=== PATIENT | female | born 1955 | race African-American/Black ===

== ENCOUNTER 2017-09-14 07:45 | Day surgery (SDC) | payer OTHER ==
[2017-09-14] MEDS ORDERED: NA CHLORIDE 0.9% 1,000 ML ONE (08:05)
[2017-09-14] MEDS ORDERED: LIDOCAINE 1% MPF 5 ML VIAL ONE (08:31)
[2017-09-14] MEDS ORDERED: PROPOFOL 200 MG/20 ML VIAL IV ONE (08:31)
--- NOTE | 2017-09-14 09:16 | ENDO RPT ---
[address], [address] COLONOSCOPY PROCEDURE REPORT EXAM DATE: 09/14/2017 PATIENT NAME: hCeryl Perales MR #: [id number] BIRTHDATE: 1955 ATTENDING: Jean Claude Snyder DR STATUS: outpatient CAR CLEANER: Shannon Beaver RN and Dillon Ibrahim INDICATIONS: The patient is a 62 yr old Female here for a colonoscopy due to colon cancer screening PROCEDURE PERFORMED: Colonoscopy with biopsy MEDICATIONS: Per Anesthesia. ESTIMATED BLOOD LOSS: None CONSENT: The patient understands the risks and benefits of the procedure and understands that these risks include, but are not limited to: sedation, allergic reaction, infection, perforation and/or bleeding. Alternative means of evaluation and treatment include, among others: physical exam, x-rays, and/or surgical intervention. The patient elects to proceed with this endoscopic procedure. DESCRIPTION OF PROCEDURE: During intra-op preparation period all mechanical medical equipment was checked for proper function. Hand hygiene and appropriate measures for infection prevention was taken. Procedure, possible complications, alternatives including, but not limited to possibility of bleeding, perforation, tear, infection, sepsis, need for surgery, need for blood transfusion, were explained to the patient. After the risks, benefits and alternatives of the procedure were thoroughly explained, Informed consent was verified, confirmed and timeout was successfully executed by the treatment team. The patient was placed in the left lateral position. A digital rectal exam was performed and revealed internal hemorrhoids and A digital rectal exam was performed and revealed several skin tags. After appropriate level of anesthesia, the scope was passed. The [id number] ([id number]) endoscope was introduced through the anus and advanced to the cecum, which was identified by the ileocecal valve. The quality of the prep was fair. The instrument was then slowly withdrawn as the colon was fully examined. Scope withdrawal time was 10 minutes. COLON FINDINGS: The lumen was mildly dilated in the left colon. A biopsy was performed using cold forceps. Small internal hemorrhoids were found. Retroflexed views revealed no abnormalities. The scope was then completely withdrawn from the patient and the procedure terminated. ADVERSE EVENTS: There were no complications. IMPRESSIONS: 1. The lumen was dilated in the left colon; biopsy was performed using cold forceps 2. Small internal hemorrhoids RECOMMENDATIONS: 1. avoid NSAIDS for 2 weeks 2. fiber rich diet 3. await biopsy results 4. follow-up: office 2 week(s) 5. hemorrhoidal hygiene RECALL: Return in 5 year(s) for Colonoscopy, pending biopsy results. Jean Claude Snyder DR eSigned: Jean Claude Snyder DR 09/14/2017 9:15 AM cc: CPT CODES: ICD9 CODES: PATIENT NAME: Cheryl Perales MR#: [id number]
== END 2017-09-14 10:15 | disposition home or self-care (01) ==
LOC: ENDO 07:45
PROVIDERS: ATTEND Surgery
PROC: 0DBG8ZX Excision of Left Large Intestine, Via Natural or Artificial Opening Endoscopic, Diagnostic (ICD-10-PCS; principal; 2017-09-14 08:30)
DX: Z12.11 Encounter for screening for malignant neoplasm of colon (principal); K64.8 Other hemorrhoids; L91.8 Other hypertrophic disorders of the skin; E11.9 Type 2 diabetes mellitus without complications; I10 Essential (primary) hypertension; E78.5 Hyperlipidemia, unspecified; G25.81 Restless legs syndrome; E66.9 Obesity, unspecified; F41.8 Other specified anxiety disorders; H40.10X0 Unspecified open-angle glaucoma, stage unspecified; Z79.82 Long term (current) use of aspirin; Z90.49 Acquired absence of other specified parts of digestive tract; Z80.1 Family history of malignant neoplasm of trachea, bronchus and lung; Z80.3 Family history of malignant neoplasm of breast; Z83.71 Family history of colonic polyps; Z82.49 Family history of ischemic heart disease and other diseases of the circulatory system
CPT/HCPCS: 82962; 88305; J7030

== ENCOUNTER 2018-07-05 06:21 | Day surgery (SDC) | payer OTHER ==
--- NOTE | 2018-06-29 14:45 | RAD REPORT ---
EXAM DESCRIPTION: RAD - Chest Pa And Lat (2 Views) - 06/29/2018 2:41 pm CLINICAL HISTORY: preop Chest pain. COMPARISON: CHEST PA AND LAT 2 VIEW dated 10/09/2008; CHEST SINGLE VIEW dated 08/22/2003 FINDINGS: The lungs are clear. The heart is normal in size. No displaced fractures. IMPRESSION: No acute or concerning finding suspected.
[2018-06-29 14:53] LABS: Absolute Lymphocytes (CBC) 3.3 K/uL (0.7-4.9); Absolute Monocytes 0.5 K/uL (0.1-1.3); Absolute Neutrophil 4.1 K/uL (1.8-8.0); Basophils % 0.2 % (0-1.3); Eosinophils % 2.1 % (0-4.4); Hematocrit 39.9 % (36.0-45.0); Lymphocytes % 41.3 % (15.3-44.8); MPV 8.2 fL (7.6-11.3); Monocytes % 6.2 % (3.3-12.3); RBC Red Blood Cell Count 4.71 M/uL (3.86-4.86)
[2018-06-29 15:02] LABS: Protime INR 1.09
[2018-06-29 15:08] LABS: Potassium 3.6 mmol/L (3.5-5.1)
--- NOTE | 2018-06-29 21:37 | EKG ---
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
--- OUTSIDE RECORDS SUMMARY | 2018-07-05 06:24 | XMS REPORT ---
:1955 Author Organization eClinicalWorks Care Team Providers Name Role Phone Doc Jacobs Provider Role Unavailable Allergies No Known Allergies Problems Problem Type Condition Code Onset Dates Condition Status Problem Depression with anxiety F41.8 Active Problem Obesity E66.9 Active Problem Fatigue R53.83 Active Problem Adult BMI 39.0-39.9 kg/sq m Z68.39 Active Problem Hot flashes due to menopause N95.1 Active Problem Tear of left rotator cuff, M75.102 Active unspecified tear extent Problem Hyperlipidemia E78.5 Active Problem Hypertension I10 Active Problem H/O abdominal hysterectomy Z90.710 Active Problem History of colonic polyps Z86.010 Active Problem Fibromyalgia affecting multiple M79.7 Active sites Problem Diabetes mellitus type 2, E11.9 Active controlled Assessment Screening mammogram, encounter for Z12.31 Active Problem Restless legs syndrome G25.81 Active Problem Seasonal allergies J30.2 Active Medications No Known Medications Results No Known Results Summary Purpose eClinicalWorks Submission
--- OUTSIDE RECORDS SUMMARY | 2018-07-05 06:24 | XMS REPORT ---
:1955 Author Organization eClinicalWorks Care Team Providers Name Role Phone Doc Jacobs Provider Role Unavailable Allergies No Known Allergies Problems Problem Type Condition Code Onset Dates Condition Status Problem Restless legs syndrome G25.81 Active Problem Depression with anxiety F41.8 Active Problem Seasonal allergies J30.2 Active Problem Hot flashes due to menopause N95.1 Active Problem History of colonic polyps Z86.010 Active Problem H/O abdominal hysterectomy Z90.710 Active Problem Obesity E66.9 Active Problem Fatigue R53.83 Active Problem Hyperlipidemia E78.5 Active Problem Hypertension I10 Active Assessment Fibromyalgia affecting multiple M79.7 Active sites Assessment Restless legs syndrome G25.81 Active Assessment Fatigue R53.83 Active Assessment Hypertension I10 Active Assessment Diabetes mellitus type 2, E11.9 Active controlled Assessment Depression with anxiety F41.8 Active Problem Fibromyalgia affecting multiple M79.7 Active sites Assessment Hyperlipidemia E78.5 Active Problem Diabetes mellitus type 2, E11.9 Active controlled Medications Medication Code Code Instructions Start End Status Dosage System Date [facility] 79293033312 5 MG Orally Active 1 tablet Once a day Pravastatin [facility] 35269505035 80 MG Orally Active 1 tablet Sodium Once a day Vitamin D3 [facility] 96771-26825 Active not defined Requip [facility] 93798585486 0.5 MG Orally Active 1 tablet Once a day 1 to 3 hours before bedtime True Results ND 0 test strips October Inactive 1 time Meter/Lancets 18, per day Strips 2017 Hyzaar [facility] [address]-54 25-100 MG Active 1 tablet Orally Once a day Norvasc [facility] 96810469168 10 MG Orally Active 1 tablet Once a day Aspirin Adult [facility] 79010024137 81 MG Orally Active 1 tablet Low Dose Once a day Folic Acid [facility] 76953929148 1 MG Orally Active 1 tablet Once a day Effexor XR [facility] 03556181949 75 MG Orally Active 1 capsule Once a day with food Lyrica [facility] 26917437335 100 MG Orally Active 1 capsule Twice a day Metoprolol [facility] 28264711262 25 MG Orally Active 1 tablet Succinate ER Once a day Results No Known Results Summary Purpose eClinicalWorks Submission
--- OUTSIDE RECORDS SUMMARY | 2018-07-05 06:24 | XMS REPORT ---
:1955 Author Organization eClinicalWorks Care Team Providers Name Role Phone Doc Jacobs Provider Role Unavailable Allergies, Adverse Reactions, Alerts Substance Reaction Event Type N.K.D.A. Info Not Available Non Drug Allergy Problems Problem Type Condition Code Onset Dates Condition Status Problem Seasonal allergies J30.2 Active Problem Fatigue R53.83 Active Problem Depression with anxiety F41.8 Active Problem H/O abdominal hysterectomy Z90.710 Active Assessment Fibromyalgia affecting multiple M79.7 Active sites Problem Hot flashes due to menopause N95.1 Active Assessment Fatigue R53.83 Active Assessment Adult BMI 39.0-39.9 kg/sq m Z68.39 Active Problem Adult BMI 39.0-39.9 kg/sq m Z68.39 Active Problem Hypertension I10 Active Problem Obesity E66.9 Active Problem History of colonic polyps Z86.010 Active Problem Hyperlipidemia E78.5 Active Assessment Hyperlipidemia E78.5 Active Assessment Hypertension I10 Active Assessment Restless legs syndrome G25.81 Active Assessment Depression with anxiety F41.8 Active Problem Fibromyalgia affecting multiple M79.7 Active sites Assessment Pain in left wrist M25.532 Active Problem Diabetes mellitus type 2, E11.9 Active controlled Assessment Diabetes mellitus type 2, E11.9 Active controlled Problem Restless legs syndrome G25.81 Active Medications Medication Code Code Instructions Start End Status Dosage System Date Date Effexor XR [facility] 07782283198 75 MG Orally Active 1 capsule Once a day with food Vitamin D3 [facility] [address]-99 Active not defined Aspirin Adult [facility] 77323771073 81 MG Orally Active 1 tablet Low Dose Once a day Requip [facility] 19319842454 0.5 MG Orally Inactive 1 tablet Once a day 1 to 3 hours before bedtime Metoprolol [facility] 77340766483 25 MG Active TAKE 1 Succinate ER TABLET BY MOUTH ONCE DAILY Norvasc [facility] 77440005925 10 MG Active TAKE 1 TABLET BY MOUTH ONCE DAILY Lyrica [facility] 78983310172 100 MG Orally Active 1 capsule Twice a day Pravastatin [facility] 89090724432 80 MG Orally Active 1 tablet Sodium Once a day Hyzaar [facility] [address]-40 25-100 MG Active 1 tablet Orally Once a day Metoprolol [facility] 45187731606 25 MG Orally Active 1 tablet Succinate ER Once a day Tradjenta [facility] 93850779079 5 MG Orally Active 1 tablet Once a day Folic Acid [facility] 94345387234 1 MG Orally Active 1 tablet Once a day Folic Acid [facility] 85351135919 1 MG Active TAKE 1 TABLET BY MOUTH ONCE DAILY Effexor XR [facility] 93132167149 75 MG Active TAKE 1 CAPSULE BY MOUTH ONCE DAILY Pravastatin [facility] 39746636718 80 MG Orally Active 1 tablet Sodium Once a day Tradjenta [facility] 21541261039 5 MG Active TAKE 1 TABLET BY MOUTH ONCE DAILY Norvasc [facility] 49878856448 10 MG Orally Active 1 tablet Once a day Results No Known Results Summary Purpose eClinicalWorks Submission
--- OUTSIDE RECORDS SUMMARY | 2018-07-05 06:24 | XMS REPORT ---
[...] menopause N95.1 Active Assessment Fatigue R53.83 Active Problem History of colonic polyps Z86.010 Active Assessment Pain in left shoulder M25.512 Active Assessment Need for influenza vaccination Z23 Active Problem H/O abdominal hysterectomy Z90.710 Active Problem Obesity E66.9 Active Problem Fatigue R53.83 Active Problem Hyperlipidemia E78.5 Active Problem Hypertension I10 Active Assessment Depression with anxiety F41.8 Active Assessment Hyperlipidemia E78.5 Active Assessment Fibromyalgia affecting multiple M79.7 Active sites Assessment Restless legs syndrome G25.81 Active Assessment Diabetes mellitus type 2, E11.9 Active controlled Assessment Hypertension I10 Active Problem Fibromyalgia affecting multiple M79.7 Active sites Assessment Pain in right shoulder M25.511 Active Problem Diabetes mellitus type 2, E11.9 Active controlled Medications Medication Code Code Instructions Start End Status Dosage System Date Date Tradjent [facility] 93761900594 5 MG Active TAKE 1 TABLET BY MOUTH ONCE DAILY Metoprolol [facility] 50582235436 25 MG Active TAKE 1 Succinate ER TABLET BY MOUTH ONCE DAILY Aspirin Adult [facility] 46356321644 81 MG Orally Active 1 tablet Low Dose Once a day Metoprolol [facility] 81930944621 25 MG Orally Active 1 tablet Succinate ER Once a day Vitamin D3 [facility] 78626-67343 Active not defined Norvasc [facility] 47716132083 10 MG Orally Active 1 tablet Once a day Pravastatin [facility] 57024363218 80 MG Orally Active 1 tablet Sodium Once a day Folic Acid [facility] 99010360372 1 MG Orally Active 1 tablet Once a day Lyrica [facility] 64079803987 100 MG Orally Active 1 capsule Twice a day Requip [facility] 61964103208 0.5 MG Orally Active 1 tablet 1 Once a day to 3 hours before bedtime Norvasc [facility] 67138908609 10 MG Active TAKE 1 TABLET BY MOUTH ONCE DAILY Hyzaar [facility] 04372920450 100-25 MG Active TAKE 1/2 TABLET BY MOUTH TWICE DAILY Hyzaar [facility] [address]-74 25-100 MG Active 1 tablet Orally Once a day Tradjenta [facility] 25081866802 5 MG Orally Active 1 tablet Once a day Folic Acid [facility] 06626463235 1 MG Active TAKE 1 TABLET BY MOUTH ONCE DAILY Pravastatin [facility] 67568044501 80 MG Orally Active 1 tablet Sodium Once a day Effexor XR [facility] 33550812133 75 MG Orally Active 1 capsule Once a day with food Results No Known Results Immunizations Vaccine Administration Date Afluria Feb 21, 2018 Summary Purpose eClinicalWorks Submission
--- OUTSIDE RECORDS SUMMARY | 2018-07-05 06:24 | XMS REPORT ---
:1955 Author Organization eClinicalWorks Care Team Providers Name Role Phone Reynaldo Doc Provider Role Unavailable Allergies No Known Allergies [...] E78.5 Active Problem Hypertension I10 Active Assessment Diabetes mellitus type 2, E11.9 Active controlled Problem Fibromyalgia affecting multiple M79.7 Active sites Assessment Skin tag L91.8 Active Problem Diabetes mellitus type 2, E11.9 Active controlled Medications Medication Code Code Instructions Start End Status Dosage System Date Date Norvasc [facility] 02928454713 10 MG Orally Active 1 tablet Once a day Metoprolol [facility] 68907667094 25 MG Orally Active 1 tablet Succinate ER Once a day Folic Acid [facility] 21219926345 1 MG Orally Active 1 tablet Once a day Vitamin D3 [facility] 6[address]-84184 Active not defined Hyzaar [facility] [address]-63 25-100 MG Active 1 tablet Orally Once a day Effexor XR [facility] 13707408161 75 MG Orally Active 1 capsule Once a day with food Lyrica [facility] 66118924343 100 MG Orally Active 1 capsule Twice a day Pravastatin [facility] 91987412129 80 MG Orally Active 1 tablet Sodium Once a day Aspirin Adult [facility] 48452278883 81 MG Orally Active 1 tablet Low Dose Once a day Tradjenta [facility] 12462473320 5 MG Orally Active 1 tablet Once a day Requip [facility] 82479820467 0.5 MG Orally Active 1 tablet 1 Once a day to 3 hours before bedtime Results No Known Results Summary Purpose eClinicalWorks Submission
--- OUTSIDE RECORDS SUMMARY | 2018-07-05 06:24 | XMS REPORT ---
:1955 Author Organization eClinicalWorks Care Team Providers Name Role Phone Brandon Stokes Provider Role Unavailable Allergies No Known Allergies Problems Problem Type Condition Code Onset Dates Condition Status Problem Depression with anxiety F41.8 Active Problem Obesity E66.9 Active Problem Fatigue R53.83 Active Problem Fibromyalgia affecting multiple M79.7 Active sites Problem Diabetes mellitus type 2, E11.9 Active controlled Problem Restless legs syndrome G25.81 Active Problem Seasonal allergies J30.2 Active Problem Adult BMI 39.0-39.9 kg/sq m Z68.39 Active Problem Hot flashes due to menopause N95.1 Active Problem Tear of left rotator cuff, M75.102 Active unspecified tear extent Problem Hyperlipidemia E78.5 Active Problem Hypertension I10 Active Problem H/O abdominal hysterectomy Z90.710 Active Problem History of colonic polyps Z86.010 Active Medications No Known Medications Results No Known Results Summary Purpose [employer] Submission
--- OUTSIDE RECORDS SUMMARY | 2018-07-05 06:25 | XMS REPORT ---
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
--- OUTSIDE RECORDS SUMMARY | 2018-07-05 06:25 | XMS REPORT ---
:1955 Author Organization eClinicalWorks Care Team Providers Name Role Phone Brandon Stokes Provider Role Unavailable Allergies, Adverse Reactions, Alerts Substance Reaction Event Type N.K.D.A. 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 Problem History of colonic polyps Z86.010 Active Problem Hyperlipidemia E78.5 Active Problem Hot flashes due to menopause N95.1 Active Problem H/O abdominal hysterectomy Z90.710 Active Assessment Pain, joint, shoulder, left M25.512 Active Assessment Pain, joint, shoulder, right M25.511 Active Assessment Bicipital tendinitis of left M75.22 Active shoulder Assessment Bicipital tendinitis of right M75.21 Active shoulder Problem Diabetes mellitus type 2, E11.9 Active controlled Problem Restless legs syndrome G25.81 Active Problem Seasonal allergies J30.2 Active Problem Fibromyalgia affecting multiple M79.7 Active sites Problem Depression with anxiety F41.8 Active Medications Medication Code Code Instructions Start End Status Dosage System Date Date Lyrica [facility] 94574802735 100 MG Orally Active 1 capsule Twice a day Tradjenta [facility] 58882842108 5 MG Orally Active 1 tablet Once a day Vitamin B-12 [facility] 78890882351 500 MCG Orally Active 2 tablets Once a day Pravastatin [facility] 81393017630 80 MG Orally Active 1 tablet Sodium Once a day Metoprolol [facility] 03892321838 25 MG Orally Active 1 tablet Succinate ER Once a day Vitamin D3 [facility] [address]-60 Active not defined Aspirin Adult [facility] 92819034823 81 MG Orally Active 1 tablet Low Dose Once a day Ropinirole HCl [facility] 47166484744 0.5 MG Orally Active 1 tablet 1 Once a day to 3 hours before bedtime Folic Acid [facility] 04658422234 1 MG Active TAKE 1 TABLET BY MOUTH ONCE DAILY Norvasc [facility] 23850480372 10 MG Active TAKE 1 TABLET BY MOUTH ONCE DAILY Effexor XR [facility] 55398017505 75 MG Orally Active 1 capsule Once a day with food Hyzaar [facility] [address]-35 25-100 MG Active 1 tablet Orally Once a day Folic Acid [facility] 68420128034 1 MG Orally Active 1 tablet Once a day Results Name Result Date Reference Range Unit Abnormality Flag mri left shoulder w/out contrast Summary Purpose eClinicalWorks Submission
--- OUTSIDE RECORDS SUMMARY | 2018-07-05 06:25 | XMS REPORT ---
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 Problem Arthrosis of left acromioclavicular M19.012 Active [...] Start End Status Dosage System Date Date Metoprolol [facility] 60650184503 25 MG Orally Active 1 tablet Succinate ER Once a day Vitamin B-12 [facility] 09575707513 500 MCG Orally Active 2 tablets Once a day Vitamin D3 [facility] [address]-38 Active not defined Folic Acid [facility] 94296617160 1 MG Orally Active 1 tablet Once a day Folic Acid [facility] 71810318374 1 MG Active TAKE 1 TABLET BY MOUTH ONCE DAILY Ropinirole HCl [facility] 31594230265 0.5 MG Orally Active 1 tablet 1 Once a day to 3 hours before bedtime Hyzaar [facility] [address]-32 25-100 MG Active 1 tablet Orally Once a day Aspirin Adult [facility] 51299963991 81 MG Orally Active 1 tablet Low Dose Once a day Effexor XR [facility] 80729888500 75 MG Orally Active 1 capsule Once a day with food Tradjenta [facility] 13279604937 5 MG Orally Active 1 tablet Once a day Pravastatin [facility] 74460864104 80 MG Orally Active 1 tablet Sodium Once a day Lyrica [facility] 14703726751 100 MG Orally Active 1 capsule Twice a day Norvasc [facility] 08110856828 10 MG Active TAKE 1 TABLET BY MOUTH ONCE DAILY Results No Known Results Summary Purpose eClinicalWorks Submission
--- OUTSIDE RECORDS SUMMARY | 2018-07-05 06:25 | XMS REPORT ---
:1955 Author Organization [employer] Care Team Providers Name Role Phone JacobsDoc Provider Role Unavailable Allergies, Adverse Reactions, Alerts Substance Reaction Event Type N.K.D.A. 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 Problem History of colonic polyps Z86.010 Active Problem Hyperlipidemia E78.5 Active Problem Hot flashes due to menopause N95.1 Active Problem H/O abdominal hysterectomy Z90.710 Active Assessment Tear of left rotator cuff, M75.102 Active unspecified tear extent Assessment Preoperative examination Z01.818 Active Assessment Hypertension I10 Active Assessment Diabetes mellitus type 2, E11.9 Active controlled Problem Diabetes mellitus type 2, E11.9 Active controlled Problem Restless legs syndrome G25.81 Active Assessment Adult BMI 39.0-39.9 kg/sq m Z68.39 Active Problem Seasonal allergies J30.2 Active Assessment Fibromyalgia affecting multiple M79.7 Active sites Problem Fibromyalgia affecting multiple M79.7 Active sites Problem Depression with anxiety F41.8 Active Medications Medication Code Code Instructions Start End Status Dosage System Date Date Aspirin Adult [facility] 16678453364 81 MG Orally Active 1 tablet Low Dose Once a day Vitamin D3 [facility] [address]-52 Active not defined Folic Acid [facility] 42749651688 1 MG Active TAKE 1 TABLET BY MOUTH ONCE DAILY Requip [facility] 66998916928 0.5 MG Orally Inactive 1 tablet Once a day 1 to 3 hours before bedtime Norvasc [facility] 43920306859 10 MG Orally Active 1 tablet Once a day Vitamin B-12 NDC 15046832539 500 MCG Orally Active 2 tablets Once a day Pravastatin [facility] 00526244334 80 MG Orally Active 1 tablet Sodium Once a day Effexor XR [facility] 41193111658 75 MG Orally Active 1 capsule Once a day with food Folic Acid [facility] 34847211542 1 MG Orally Active 1 tablet Once a day Norvasc [facility] 83037644463 10 MG Active TAKE 1 TABLET BY MOUTH ONCE DAILY Pravastatin [facility] 29434442949 80 MG Orally Active 1 tablet Sodium Once a day Ropinirole HCl [facility] [address]-40 0.5 MG Orally Active 1 tablet Once a day Metoprolol [facility] 80701702035 25 MG Orally Active 1 tablet Succinate ER Once a day Hyzaar [facility] [address]-99 25-100 MG Active 1/2 Orally Once a tablet day Tradjenta [facility] 27695293619 5 MG Orally Active 1 tablet Once a day Lyrica [facility] 90559150320 100 MG Orally Active 1 capsule Twice a day Results No Known Results Summary Purpose eClinicalWorks Submission
[2018-07-05] MEDS ORDERED: NA CHLORIDE 0.9% 1,000 ML ONE ×2 (06:38→09:29)
[2018-07-05] MEDS ORDERED: LIDOCAINE 1% MPF 5 ML VIAL ONE (06:40)
[2018-07-05] MEDS ORDERED: LIDOCAINE 2% MPF 5 ML VIAL ONE (07:03)
[2018-07-05] MEDS ORDERED: FENTANYL CITR 250 MCG/5 ML ONE (07:03)
[2018-07-05] MEDS ORDERED: ROCURONIUM 50 MG/5 ML VIAL IV ONE (07:03)
[2018-07-05] MEDS ORDERED: MIDAZOLAM HCL 2 MG/2 ML INJ ONE (07:03)
[2018-07-05] MEDS ORDERED: PROPOFOL 200 MG/20 ML VIAL IV ONE (07:03)
[2018-07-05] MEDS ORDERED: EPINEPHRINE/PF 1 MG/ML AMP ONE ×2 (07:21→07:33)
[2018-07-05] MEDS ORDERED: CEFAZOLIN 2GM (PREMIX IV) 2 GM/50 ML BAG ONE (07:28)
[2018-07-05] MEDS ORDERED: ROPLVACAINE HCL 20 ML ONE (07:33)
[2018-07-05] MEDS ORDERED: DEXAMETHASONE 4 MG/ML VIAL ONE (07:33)
[2018-07-05] MEDS ORDERED: EPHEDRINE SULF 50 MG/ML VIAL ONE (08:25)
[2018-07-05] MEDS ORDERED: KETOROLAC 30 MG/ML INJ ONE (10:16)
--- NOTE | 2018-07-05 10:27 | P.BOP ---
Preoperative diagnosis: left rotator cuff tear,impingement syndrome,AC arthrosis , biceps tendinitis Postoperative diagnosis: left rotator cuff tear, impingement syndrome, AC arthrosis, SLAP tear Primary procedure: left shoulder arthroscopic rotator cuff repair Secondary procedure: left shoulder arthroscopic biceps tenotomy with SLAP debridement Other procedure(s): left arthroscopic subacromial decompression with distal clavicle excision Coating Machine Helper: NONE,NONE Estimated blood loss: 10 cc Specimen: none Findings: see dictation Anesthesia: General Complications: None Implants: 1- 5.5 mm corkscrew, 2- 4.75 mm swivelock Fluids & blood products: per anesthesia Transferred to: Recovery Room Condition: Good
[2018-07-05] MEDS ORDERED: ONDANSETRON 4 MG/2 ML VIAL ONE (11:26)
--- NOTE | 2018-07-05 11:28 | RAD REPORT ---
EXAM DESCRIPTION: RAD - Shoulder 1 View - 07/05/2018 11:21 am CLINICAL HISTORY: Right shoulder surgery FINDINGS: Frontal view of the right shoulder was obtained. No fracture or dislocation is seen. Mild joint space narrowing involves the acromioclavicular joint.
[2018-07-05] MEDS ORDERED: HYDROCODONE/APAP 7.5/325 MG TAB ONE (11:52)
--- NOTE | 2018-07-06 13:41 | OP ---
Date of Procedure: 07/05/2018 Surgeon: Brandon Stokes MD Preoperative Diagnoses: 1.Left shoulder rotator cuff tear. 2.Left shoulder impingement syndrome. 3.Left shoulder AC joint arthrosis. 4.Left shoulder bicipital tenosynovitis. Postoperative Diagnoses: 1.Left shoulder rotator cuff tear. 2.Left shoulder impingement syndrome. 3.Left shoulder AC joint arthrosis. 4.Left shoulder SLAP tear. Procedure Performed: 1.Left shoulder arthroscopic rotator cuff repair. 2.Left shoulder arthroscopic biceps tenotomy with SLAP debridement. 3.Left shoulder arthroscopic subacromial decompression with distal clavicle excision. Anesthesia: General endotracheal. Fluids: Per Anesthesia record. Estimated Blood Loss: Less than 10 cc. Complications: None. Implants: 1.One 5.5 mm Arthrex corkscrew. 2.Two 4.75 mm Arthrex SwiveLock. Indication For Procedure: Cheryl is a 63-year-old female, who presented to my clinic with signs, symp toms and MRI findings consistent with a left shoulder rotator cuff tear as well as impingement syndro me and AC joint arthrosis. I discussed with the patient at length risks and benefits associated with operative and nonoperative treatment. She expressed understanding and elected to proceed with opera tive treatment. Description Of Procedure: After informed consent was obtained, the patient was identified in the pre operative holding area. The left upper extremity was marked. The patient was taken back to the PACU where she underwent an interscalene block to her left upper extremity performed by Anesthesia. She was then transferred to the operating table in supine fashion, placed under general endotracheal anes thesia. She was then placed in the beach chair position with her extremities well padded. The left upper extremity was examined. The patient had full range of motion with no instability noted of her shoulder joint. The left upper extremity was then prepped and draped in usual sterile fashion. A ti me-out was initiated. Correct patient and procedure were confirmed and identified. The patient did receive preoperative prophylactic antibiotics. Via the posterior portal, a spinal needle was introdu sol in her glenohumeral joint and the shoulder was injected with 30 cc of normal saline to distend th e capsule. An 11 blade was then used to create a posterior portal and an arthroscope was introduced into the posterior portal position. Diagnostic arthroscopy was performed. Anterior portal was creat ed and cannula was placed. A probe was introduced into the shoulder from the anterior portal. The p atient was noted to have a type 2 SLAP tear with superior labrum elevated off the glenoid. Biceps te notomy was performed using arthroscopic meniscal biter. This was completed. The SLAP tear and the b iceps tendon anchor were then debrided using arthroscopic shaver to stable borders. Next, it was not ed that the subscapular was going to be intact. The anterior and posterior labrum were found to be i ntact and stable to probe. There were no loose bodies in the axillary pouch. There was some mild fi ssuring of the glenohumeral joint with minimal chondromalacia. The patient was noted to have a full- thickness tear of the supraspinatus. A lateral portal was created. An was introduced and it was able to pass through into the joint space consisting of full thickness tear. Arthroscopic sh aver was then passed through the lateral portal and rotator cuff tear was then debrided using an arth roscopic shaver to healthy tissue was encountered. The greater tuberosity was then debrided using an arthroscopic shaver to create a bleeding bony bed with healing of the repair. The arthroscope was t hen brought out on the subacromial space and subacromial bursectomy was performed. A single lateral stab incision was made lateral to the acromion and was then introduced to create a tunnel for the medial row anchor. A single 5.5 mm medial row anchor was then placed without complication. Lara cannula was placed, and then using a scorpion FastPass suture passer, the double loaded anchor suture was then passed through the supraspinatus in anterior to posterior fashion and suture was the n tied using a sliding knot in horizontal mattress fashion. There was good reduction of the supraspi natus on the footprint on the greater tuberosity. Lateral row fixation was then used and the suture was then placed in a crisscross fashion both anteriorly and posteriorly and two 4.75 mm Sw iveLock were then placed with fixation. There was good reduction of the supraspinatus on the footprint. Next, attention was taken to the subacromial decompression. The patient was noted to have fraying of the coracoacromial ligament. Soft tissue was then debrided off the undersurface of the acromion using a radiofrequency ablator and subacromial decompression and acromioplasty were then performed using arthroscopic andrea. Anterior osteophytes were then debrided using arthroscopic andrea. The andrea was also used to debride the just lateral to the AC joint. Next, via the anter ior portal, a distal clavicle excision was then performed using a radiofrequency ablator and arthrosc opic andrea. There was no impingement noted of the clavicle on to the acromion. The AC ligament was l eft intact and there was good overall removal of the distal clavicle. Instruments were then removed without complication. The wound was then irrigated thoroughly with normal saline. Subcutaneous tiss ue was approximated using a 4-0 Vicryl. Portals and skin were approximated using 3-0 Monocryl. Ster ile dressings were applied. The patient was awakened and transferred to PACU in stable condition aft er the shoulder immobilizer was placed. Postoperative Plan: The patient will be nonweightbearing of her left upper extremity. Manager [employer] apy will begin at 2 weeks postoperatively and she will follow the medium rotator cuff repair protocol . GORGE/DIEGO Voice ID: [id number] Report ID: [id number]
== END 2018-07-05 13:30 | disposition home or self-care (01) ==
LOC: OR 06:21
PROVIDERS: ATTEND Orthopaedic Surgery Sports Medicine
PROC: 0RNK4ZZ Release Left Shoulder Joint, Percutaneous Endoscopic Approach (ICD-10-PCS; 2018-07-05)
PROC: 0PBB4ZZ Excision of Left Clavicle, Percutaneous Endoscopic Approach (ICD-10-PCS; 2018-07-05)
PROC: 0RBK4ZZ Excision of Left Shoulder Joint, Percutaneous Endoscopic Approach (ICD-10-PCS; 2018-07-05)
PROC: 0LM24ZZ Reattachment of Left Shoulder Tendon, Percutaneous Endoscopic Approach (ICD-10-PCS; principal; 2018-07-05 07:30)
DX: M75.122 Complete rotator cuff tear or rupture of left shoulder, not specified as traumatic (principal); M75.42 Impingement syndrome of left shoulder; M19.012 Primary osteoarthritis, left shoulder; M75.22 Bicipital tendinitis, left shoulder; M94.212 Chondromalacia, left shoulder; S43.432A Superior glenoid labrum lesion of left shoulder, initial encounter; X58.XXXA Exposure to other specified factors, initial encounter; G89.18 Other acute postprocedural pain; E11.9 Type 2 diabetes mellitus without complications; E78.5 Hyperlipidemia, unspecified; I10 Essential (primary) hypertension; F41.8 Other specified anxiety disorders; G25.81 Restless legs syndrome; Z79.82 Long term (current) use of aspirin; Z79.84 Long term (current) use of oral hypoglycemic drugs; Z79.899 Other long term (current) drug therapy
CPT/HCPCS: 36415; 71046; 73020; 80048; 82962; 85025; 85610; 85730; 93005; J0171; J0690; J2250; J2405; J2704; J2795; J3010; J7030

== ENCOUNTER 2020-03-06 14:38 | Emergency (ER) | payer OTHER ==
--- OUTSIDE RECORDS SUMMARY | 2020-03-06 14:55 | XMS REPORT | Continuity of Care Document ---
:1955 Author Organization [facility] t Address [address] [place] [address] Care Team Providers Name Role Phone Unavailable Unavailable Unavailable Problems Condition Condition Condition Status Onset Resolution Last Treating Co mments Source Name Details Category Date Date Treatment Clinician Date Restless Restless Problem [facility] - syndrome syndrome Memori a l [facility] Depression Depression Problem Active [facility] with with [facility] - anxiety anxiety Memoria l [facility] Seasonal Seasonal Problem Active [facility] allergies allergies [facility] - Memoria l [facility] Hot Hot Problem Active [facility] flashes flashes L[facility] - due to due to Memoria menopause menopause l [facility] History of History of Problem Active [facility] colonic colonic [facility] - polyps polyps Memoria l [facility] H/O H/O Problem Active [facility] abdominal abdominal Luke s - hysterecto hysterecto Me moria my my l [facility] Obesity Obesity Problem Active [facility] Fatigue Fatigue Problem Active [facility] - [facility] Hyperlipid Hyperlipid Problem Active [facility] emia emia [facility] - Memoria l [facility] Hypertensi Hypertensi Problem Active [facility] on on [facility] - Memoria l [facility] Fibromyalg Fibromyalg Problem Active [facility] ia ia [facility]ukes - affecting affecting Jimenez joana multiple multiple l sites sites [facility] Diabetes Diabetes Problem Active [facility] mellitus mellitus [facility] - type 2, type 2, Memoria controlled controlled l [facility] Adult BMI Adult BMI Problem Active [facility] 39.0-39.9 39.0-39.9 Luke s - kg/sq m kg/sq m Memoria l [facility] Tear of Tear of Problem Active [facility] left left [facility] - rotator rotator Memoria cuff, cuff, l unspecifie unspecifie Ou tpati d tear d tear ent extent extent Clinics Arthrosis Arthrosis Problem Active [facility] of left of left [facility] - acromiocla acromiocla Me moria vicular vicular l joint joint [facility] Abnormal Abnormal Problem Active [facility] mammogram mammogram [facility] - [facility] Odynophagi Odynophagi Problem Active [facility] a [facility] Other Other Problem Active [facility] chronic chronic [facility] - pain pain [facility] Primary Primary Diagnosis Active [facility] osteoarthr osteoarthr Lillie kes - itis of itis of Memoria right knee right knee l [facility] Current Current Problem Active [facility] moderate moderate [facility] - episode of episode of Me moria major major l depressive depressive Ou tpati disorder disorder ent without without Clinics prior prior episode episode Type 2 Type [address] diabetes diabetes [facility] - mellitus mellitus Memori a with with l hyperglyce hyperglyce Ou tpati edmund, edmund, ent without without Clinics long-term long-term current current use of use of insulin insulin Allergies, Adverse Reactions, Alerts This patient has no known allergies or adverse reactions. Medications Ordered Filled Start Stop Current Ordering Indication Dosage Frequency Signature Comments Components Source Medication Medication Date Date Medication? Clinician (SIG) Name Name MetFORMIN MetFORMIN Yes Doc [address] HCl ER HCl ER 6-26 Jacobs with meal [facility] - 00:00: [facility] 00 l [facility] Tradjenta Tradjenta Yes Doc TAKE [address] [facility] TABLET BY [facility] - MOUTH ONCE Memoria DAILY FOR l 90 DAYS [facility] Vitamin D3 Vitamin D3 Yes Doc not [facility] Jacobs defined [facility] Omeprazole Omeprazole Yes Doc [address] [facility] Jacobs 30 minutes Lukes - before [facility]oria morning l meal [facility] Pravastatin Pravastatin Yes Doc [address] [facility] Sodium Sodium Jacobs [facility] Lyrica Lyrica Yes Doc [address] [facility] Hydrochloro Hydrochloro Yes Doc [address] [facility] thiazide thiazide Jacobs in the Luke s - morning [facility]oria l [facility] Norvasc Norvas Yes Doc [address] [facility] Vitamin Vitamin Yes Doc [address] B-12 B-12 Jacobs [facility] Hydrocodone Hydrocodone Yes Doc not [facility] -Acetaminop -Acetaminop Jacobs defined Lukes - hen hen Memoria l [facility] Tramadol Tramadol Yes Doc [address] HCl HCl Jacobs as needed [facility] True True Yes Doc [address] [facility] Results Results Jacobs day [facility] - [facility] Meloxicam Meloxicam Yes Doc not [facility] Jacobs defined [facility] Methocarbam Methocarbam Yes Doc not [facility] ol ol Jacobs defined [facility] - Memoria l [facility] Aspirin Aspirin Yes Doc [address] [facility] Adult Low Adult Low Jacobs Luke s - Dose Dose [facility] l [facility] Folic Acid Folic Acid Yes Doc TAKE [address] [facility] [facility] Jacobs TABLET BY [facility] - MOUTH ONCE Mem[facility] DAILY l [facility] Metoprolol Metoprolol Yes Doc [address] Succinate Succinate Jacobs Luke [facility] - ER ER [facility] l [facility] Effexor XR Effexor XR Yes Doc [address] [facility] Jacobs with food [facility] Losartan Losartan Yes Doc [address] Potassium Potassium Jacobs [facility] - [facility] Immunizations Ordered Filled Immunization Date Status Comments [facility] Immunization Name Name Bushra Tomlinson 2018-02-[address] [facility] [facility] Outpatient Clinics Procedures This patient has no known procedures. Encounters Start End Encounter Admission Attending Care Care Encounter Source Date/Time Date/Time Type Type Clinicians Facility Department ID 2019-11-29 2019-11-29 Outpatient Thomas Cavanaugh [id number] [facility] 14:00:00 14:00:00 t [facility] Medicine Medicine Outpati ent Clinics 2019-11-01 2019-11-01 Outpatient Thomas Cavanaugh [id number] [facility] 13:30:00 13:30:00 t [facility] Medicine Medicine Outpati ent Clinics 2019-08-06 2019-08-06 [facility] [id number] [facility] 13:54:00 13:54:00 t [place] [employer] - [employer] [facility] Medicine Outpati ent Clinics 2019-06-07 2019-06-07 [facility] [id number] 10:00:00 10:00:00 t [place] [employer] - [employer] [facility] Medicine Outpati ent Clinics 2019-05-16 2019-05-16 [facility] [id number] [address] 14:44:00 14:44:00 t [place] [employer] [facility] Medicine Outpati ent Clinics 2019-03-15 2019-03-15 [facility] [id number] 13:32:00 13:32:00 t [place] [employer] [facility] Medicine Outpati ent Clinics 2019-03-08 2019-03-08 [facility] [id number] [facility] 10:00:00 10:00:00 t [place] [employer] [facility] Medicine Outpati ent Clinics 2019-03-06 2019-03-06 [facility] [id number] 10:20:00 10:20:00 t [place] [facility] Medicine Outpati ent Clinics 2019-02-27 2019-02-27 [facility] [id number] 09:30:00 09:30:00 t Bone [facility] and [facility] Clinic of [facility] ent Clinics 2019-02-05 2019-02-05 [facility] [id number] [facility] 10:30:00 10:30:00 t [place] [employer] [facility] Medicine Outpati ent Clinics 2019-01-31 2019-01-31 [facility] [id number] 16[facility]18:00 16:18:00 t [place] [employer] [facility] Medicine Outpati ent Clinics 2019-01-23 2019-01-23 [facility] [id number] 10:36:00 10:36:00 t [place] [facility] ent Clinics 2018-12-15 2018-12-15 [facility] [id number] 07:58:00 07:58:00 t [employer] Oncology [facility] ent Clinics 2018-11-27 2018-11-27 [facility] [id number] 11:30:00 11:30:00 t [employer] Oncology [facility] 2018-11-27 2018-11-27 [facility] [id number] 10:00:00 10:00:00 t Bone Bone and [facility] - and Joint Joint [facility] a [facility] ent Clinics 2018-08-28 2018-08-28 [facility] [id number] [facility] 11:43:00 11:43:00 t Bone Bone and [facility] - [facility] Joint [facility] a [facility] Clinics 2018-08-28 2018-08-28 [facility] [id number] 10:30:00 10:30:[address] [facility] ent Clinics 2018-08-17 2018-08-17 [facility] [id number] 10:00:00 10:00:00 t Bone Bone and [facility] - and Joint Joint [facility] a [facility] Clinics 2018-07-17 2018-07-17 [facility] [id number] [facility] 16:15:00 16:15:00 t Bone Bone and [facility] - and [facility] Joint [facility] a [facility] Clinics 2018-07-17 2018-07-17 [facility] [id number] 11:00:00 11:00:00 t Bone Bone and [facility] - and [facility] Joint [facility] a [facility] Clinics 2018-07-03 2018-07-03 [facility] [id number] 11:00:00 11:00:[address] Luke s - [facility] ent Clinics 2018-06-29 2018-06-29 [facility] [id number] [facility] 13:06:00 13:06:00 t Bone Bone and [facility] - and [facility] Joint [facility] 2018-06-21 2018-06-21 [facility] [id number] 09:00:00 09:00:00 t Bone Bone and [facility] - [facility] Joint [facility] 2018-06-20 2018-06-20 [facility] [id number] 08:52:00 08:52:00 t Bone Bone and [facility] - [facility] Joint [facility] 2018-06-15 2018-06-15 [facility] [id number] [facility] 11:39:00 11:39:00 t [place] [employer] [facility] 2018-06-15 2018-06-15 [facility] [id number] 08:30:00 08:30:00 t Bone Bone and [facility] - [facility] Joint [facility] 2018-06-13 2018-06-13 [facility] [id number] [facility] 10:00:00 10:00:00 t Bone Bone and [facility] - and [facility] Joint [facility] a [facility] Clinics 2018-05-30 2018-05-30 [facility] [id number] 10:15:00 10:15:00 t [place] [employer] - [employer] [facility] ent Clinics 2018-02-21 2018-02-21 [facility] [id number] [facility] 10:15:00 10:15:00 t [place] [employer] s - [facility] ent Clinics 2017-11-23 2017-11-23 [facility] [id number] 10:15:00 10:15:00 t [place] [employer] - [employer] [facility] ent Clinics 2017-10-24 2017-10-24 Outpatient Thomas Cavanaugh [id number] 14:15:00 14:15:00 t [facility] Results This patient has no known results.
[2020-03-06] MEDS ORDERED: ONDANSETRON 4 MG/2 ML VIAL ONE (16:13)
[2020-03-06] MEDS ORDERED: MECLIZINE HCL 12.5 MG TAB ONE (16:14)
--- NOTE | 2020-03-06 16:21 | RAD REPORT ---
EXAM DESCRIPTION: CT - Head Brain Wo Cont - 03/06/2020 4:15 pm CLINICAL HISTORY: DIZZINESS, near-syncope, hypertension COMPARISON: No comparisons TECHNIQUE: Axial 5 mm thick images of the head were obtained without IV contrast. All CT scans are performed using dose optimization technique as appropriate and may include automated exposure control or mA/KV adjustment according to patient size. FINDINGS: No intracranial hemorrhage, mass, edema or shift of mid-line structures. No acute infarcti on changes seen. No abnormal extra-axial fluid collections. Ventricles are normal. No measurable atro phy or chronic ischemic change. Physiologic basal ganglia calcifications are present. Mastoid air cells and visualized portions of the paranasal sinuses are clear. No acute bony findings. IMPRESSION: Negative non-contrast CT head examination.
[2020-03-06 16:26] LABS: Absolute Lymphocytes (CBC) 1.8 K/uL (0.7-4.9); Basophils % 2.1 % (0-1.3); Hematocrit 39.2 % (36.0-45.0); Lymphocytes % 22.7 % (15.3-44.8); MPV 8.4 fL (7.6-11.3); RBC Red Blood Cell Count 4.69 M/uL (3.86-4.86)
[2020-03-06 16:27] LABS: Urine Glucose NEGATIVE (NEG)
[2020-03-06 16:28] LABS: Urine Blood NEGATIVE (NEG); Urine Protein NEGATIVE (NEG)
[2020-03-06 16:32] LABS: Urine Bacteria NONE SEEN /HPF (<20); Urine Culture Reflex Order NOT NEEDED; Urine RBC NONE SEEN /HPF (NONE SEEN)
[2020-03-06 16:34] LABS: Protime INR 1.02
--- NOTE | 2020-03-06 16:51 | RAD REPORT ---
EXAM DESCRIPTION: RAD - Chest Single View - 03/06/2020 4:33 pm CLINICAL HISTORY: dizziness, hypertension COMPARISON: Two view chest February 04, 2020 TECHNIQUE: AP portable chest image was obtained 03/06/2020 4:33 pm . FINDINGS: Lungs are clear. Heart and vasculature are normal. No measurable pleural effusion and no p neumothorax. No acute bony abnormality seen. No acute aortic findings suspected. IMPRESSION: No acute cardiopulmonary process. No significant interval change.
[2020-03-06 17:10] LABS: ALT/SGPT 30 U/L (12-78); AST/SGOT 21 U/L (15-37); Albumin 4.2 g/dL (3.4-5.0); Alkaline Phosphatase 101 U/L (45-117); BUN Blood Urea Nitrogen 13 mg/dL (7-18); Bicarbonate 31 mmol/L (21-32); Bilirubin Direct 0.1 mg/dL (0-0.2); Bilirubin Total 0.4 mg/dL (0.2-1.0); Glucose Level 97 mg/dL (74-106); Magnesium 1.7 mg/dL (1.8-2.4); Potassium 3.3 mmol/L (3.5-5.1); Protein, Total 8.9 g/dL (6.4-8.2); Sodium Level 139 mmol/L (136-145); Troponin (Emerg Dept Use Only) < 0.02 ng/mL (0.0-0.045)
[2020-03-06] MEDS ORDERED: NA CHLORIDE 0.9% 1,000 ML ONE (17:26)
[2020-03-06] MEDS ORDERED: POTASSIUM 25 MEQ EFFERV TAB ONE (17:41)
[2020-03-06] MEDS ORDERED: MAGNESIUM SULFATE 1 gm IVPB 1 GM/100 ML BAG IV ONE (17:41)
--- NOTE | 2020-03-06 18:46 | EDPHYS ---
Physician Documentation [facility] [place] Name: Cheryl Perales Age: 65 yrs Sex: Female : 1955 Arrival Date: 03/06/2020 Time: 14:42 Bed 23 Private MD: ED Physician Naeem Alexander HPI: 03/06 15:40 This 65 yrs old Black Female presents to ER via Ambulatory with complaints of cp Dizziness, Abdominal Pain. 15:40 The patient presents with dizziness, lightheadedness, sense of spinning. cp 15:40 Onset: The symptoms/episode began/occurred early this morning. Associated signs and cp symptoms: Pertinent positives: nausea, Pertinent negatives: chest pain, focal weakness, near-syncope, shortness of breath, syncope. Severity of symptoms: in the emergency department the symptoms are unchanged despite home interventions. Patient's baseline: Neuro: alert and fully oriented, Motor: no deficits, Ambulation: walks without assistance, Speech: normal. Historical: - Allergies: 14:54 No Known Allergies; sv - PMHx: 14:54 High Cholesterol; Hypertension; Fibromyalgia; Arthritis; Diabetes - NIDDM; sv - PSHx: 14:54 Cholecystectomy; Hysterectomy; Breast biopsy; Rotator cuffs bilateral; ganglion cyst; sv - Immunization history:: Flu vaccine is up to date. - Social history:: Smoking status: Patient denies any tobacco usage or history of. ROS: 15:45 Constitutional: Negative for body aches, chills, fever, poor PO intake. cp 15:45 Eyes: Negative for injury, pain, redness, and discharge. cp 15:45 Cardiovascular: Negative for chest pain, palpitations. 15:45 Respiratory: Negative for cough, shortness of breath, wheezing. 15:45 Abdomen/GI: Positive for nausea, Negative for vomiting, diarrhea, black/tarry stool, rectal bleeding. 15:45 : Negative for urinary symptoms. 15:45 Neuro: Positive for dizziness, general weakness, Negative for altered mental status, gait disturbance, headache, numbness, syncope, tingling. 15:45 All other systems are negative. Exam: 15:50 Constitutional: The patient appears in no acute distress, alert, awake, cp non-diaphoretic, non-toxic, well developed, well nourished. 15:50 Head/Face: Normocephalic, atraumatic. cp 15:50 Eyes: Periorbital structures: appear normal, Pupils: equal, round, and reactive to light and accomodation, Extraocular movements: intact throughout, Conjunctiva: normal, no exudate, no injection, Sclera: no appreciated abnormality, Lids and lashes: appear normal, bilaterally. 15:50 ENT: External ear(s): are unremarkable, Ear canal(s): are normal, clear, TM's: dullness, bilaterally, Nose: is normal, Mouth: Lips: moist, Oral mucosa: moist, Posterior pharynx: Airway: no evidence of obstruction, patent. 15:50 Neck: ROM/movement: is normal, is supple, without pain, no range of motions limitations. 15:50 Chest/axilla: Inspection: normal, Palpation: is normal, no crepitus, no tenderness. 15:50 Cardiovascular: Rate: normal, Rhythm: regular, Edema: is not appreciated, JVD: is not appreciated. 15:50 Respiratory: the patient does not display signs of respiratory distress, Respirations: normal, no use of accessory muscles, no retractions, labored breathing, is not present, Breath sounds: are clear throughout, no decreased breath sounds. 15:50 Abdomen/GI: Inspection: abdomen appears normal, Palpation: abdomen is soft and non-tender, in all quadrants. 15:50 Back: CVA tenderness, is absent. 15:50 Skin: no rash present. 15:50 Neuro: Orientation: to person, place \T\ time. Mentation: is normal, Cerebellar function: Romberg testing is negative, normal finger to nose testing, heel to martines testing is normal, Motor: moves all fours, strength is normal, Sensation: is normal. 16:11 ECG was reviewed by the Attending Physician. cp Vital Signs: 14:55 BP 181 / 71; Pulse 76; Resp 16; Temp 98.1; Pulse Ox 100% ; Weight 95.25 kg; Height 5 sv ft. 2 in. (157.48 cm); 16:01 BP 136 / 78; Pulse 56; Resp 18 S; Pulse Ox 99% on R/A; ca1 17:00 BP 142 / 86; Pulse 56; Resp 18 S; Pulse Ox 98% on R/A; ca1 18:09 BP 138 / 73; Pulse 56; Resp 17 S; Pulse Ox 100% on R/A; ca1 18:41 BP 102 / 54 Supine; Pulse 58; Resp 18 S; Pulse Ox 99% on R/A; ca1 18:43 BP 133 / 72 Sitting; Pulse 59; Resp 16 S; Pulse Ox 100% on R/A; ca1 18:45 BP 135 / 75 Standing; Pulse 63; Resp 17 S; Pulse Ox 100% on R/A; ca1 14:55 Body Mass Index 38.41 (95.25 kg, 157.48 cm) sv NIH Stroke Scale Scores: 15:50 NIHSS Score: 0 cp MDM: 15:34 Patient medically screened. cp 16:00 Differential diagnosis: cardiac arrhythmia, CVA, generalized weakness, GI bleed, cp hypovolemia, idiopathic dizziness, TIA, vertigo. 17:54 Data reviewed: vital signs, nurses notes, lab test result(s), EKG, radiologic studies, cp CT scan. Test interpretation: by ED physician or midlevel provider: ECG. ED course: Patient reports dizziness and nausea improved. Will discharge to home for continued monitoring. 03/06 15:35 Order name: Basic Metabolic Panel; Complete Time: 17:22 03/06 17:22 Interpretation: Normal except: K 3.3; GFR 70. 03/06 15:35 Order name: CBC with Diff; Complete Time: 16:45 cp 03/06 16:45 Interpretation: Normal except: RDW 15.4; BASO% 2.1. 03/06 15:35 Order name: LFT's; Complete Time: 17:22 cp 03/06 15:35 Order name: Magnesium; Complete Time: 17:22 03/06 15:35 Order name: PT-INR; Complete Time: 16:45 03/06 15:35 Order name: Troponin (emerg Dept Use Only); Complete Time: 17:22 cp 03/06 15:35 Order name: CT Head Brain wo Cont; Complete Time: 16:45 cp 03/06 16:46 Interpretation: Report reviewed. 03/06 15:35 Order name: XRAY Chest (1 view); Complete Time: 17:22 cp 03/06 15:35 Order name: Urine Microscopic Only; Complete Time: 16:45 cp 03/06 16:14 Order name: Urine Dipstick--Ancillary (enter results); Complete Time: 16:45 eb 03/06 15:35 Order name: Orthostatics; Complete Time: 18:48 cp 03/06 15:35 Order name: EKG; Complete Time: 15:37 cp 03/06 15:35 Order name: Cardiac monitoring; Complete Time: 16:02 cp 03/06 15:35 Order name: EKG - Nurse/Tech; Complete Time: 16:10 cp 03/06 15:35 Order name: IV Saline Lock; Complete Time: 16:02 cp 03/06 15:35 Order name: Labs collected and sent; Complete Time: 16:02 cp 03/06 15:35 Order name: O2 Per Protocol; Complete Time: 15:46 cp 03/06 15:35 Order name: O2 Sat Monitoring; Complete Time: 15:45 cp 03/06 15:35 Order name: Urine Dipstick-Ancillary (obtain specimen); Complete Time: 16:32 cp EC:11 Rate is 61 beats/min. Rhythm is regular. OH interval is normal. QRS interval is normal. cp T waves are Inverted in lead aVR. Interpreted by me. Reviewed by me. Administered Medications: 15:57 Drug: Zofran (Ondansetron) 4 mg Route: IVP; Site: left antecubital; ca1 18:00 Follow up: Response: No adverse reaction; Nausea is decreased ca1 16:10 Drug: Meclizine 25 mg Route: PO; ca1 18:00 Follow up: Response: No adverse reaction; Marked relief of symptoms ca1 17:15 Drug: NS 0.9% 500 ml Route: IV; Rate: bolus; Site: left antecubital; ca1 18:00 Follow up: Response: No adverse reaction; IV Status: Completed infusion; IV Intake: ca1 500ml 17:28 Drug: Potassium Effervescent Tablet 50 mEq Route: PO; ca1 18:42 Follow up: Response: No adverse reaction ca1 17:29 Drug: Magnesium Sulfate 1 grams Route: IVPB; Infused Over: 1 hrs; Site: right wrist; ca1 18:42 Follow up: Response: No adverse reaction; IV Status: Completed infusion; IV Intake: ca1 100ml Disposition: 03/07 15:58 Co-signature as Attending Physician, Naeem Alexander MD I agree with the assessment and kdr plan of care. Disposition: 03/06/20 18:45 Discharged to Home. Impression: Dizziness and giddiness. - Condition is Stable. - Discharge Instructions: Dizziness. - Prescriptions for Meclizine 25 mg Oral Tablet - take 1 tablet by ORAL route every 8 hours As needed; 30 tablet. Zofran 4 mg Oral Tablet - take 1 tablet by ORAL route every 12 hours As needed; 20 tablet. - Medication Reconciliation Form, Thank You Letter, Antibiotic Education, Prescription Opioid Use form. - Follow up: Private Physician; When: 1 - 2 days; Reason: Recheck today's complaints. - Problem is new. - Symptoms have improved. NIH Stroke Scale - NIH Stroke Score Date: 03/06/2020 Time: 15:50 Total Score = 0 1a. Level of Consciousness (LOC) - 0(Alert) 1b. Level of Consciousness (LOC) (Year \T\ Age) - 0(Both) 1c. LOC Commands (Open \T\ Closes Eyes/Jack Frame Tender) - 0(Both) 2. Best Gaze (Lateral Gaze Paresis) - 0(Normal) 3. Visual Field Loss - 0(No visual loss) 4. Facial Palsy - 0(Normal) 5a. Left Arm: Motor (10-second hold) - 0(No drift) 5b. Right Arm: Motor (10-second hold) - 0(No drift) 6a. Left Leg: Motor (5-second hold - always test supine) - 0(No drift) 6b. Right Leg: Motor (5-second hold - always test supine) - 0(No drift) 7. Limb Ataxia (finger/nose \T\ heel/martines - test with eyes open) - 0(Absent) 8. Sensory Loss (pinprick arms/legs/face) - 0(Normal) 9. Best Language: Aphasia (description/naming/reading) - 0(No aphasia) 10. Dysarthria (speech clarity - read or repeat words) - 0(Normal) 11. Extinction and Inattention (visual/tactile/auditory/spatial/personal) - 0(No abnormality) Initials: cp Signatures: Dispatcher [employer] Luz Bell RN RN sv Rittger, Kevin, MD MD kdr Page, Corey, PA PA cp CeasarobLory RN RN ca1 Corrections: (The following items were deleted from the chart) 03/06 18:56 18:45 03/06/2020 18:45 Discharged to Home. Impression: Dizziness and giddiness. ca1 Condition is Stable. Forms are Medication Reconciliation Form, Thank You Letter, Antibiotic Education, Prescription Opioid Use. Follow up: Private Physician; When: 1 - 2 days; Reason: Recheck today's complaints. Problem is new. Symptoms have improved. cp
--- NOTE | 2020-03-06 18:46 | ER ---
Nurse's Notes [facility] Name: Cheryl Perales Age: 65 yrs Sex: Female : 1955 Arrival Date: 03/06/2020 Time: 14:42 Bed 23 Private MD: Diagnosis: Dizziness and giddiness Presentation: 03/06 14:51 Chief complaint: Patient states: woke up this morning with dizziness and abdominal area sv "feels funny like I'm going to get diarrhea", nausea. Last known well 1230 am when she went to bed, woke up around 0330 with the dizziness. Coronavirus screen: Client denies travel out of the [place] in the last 14 days. At this time, the client does not indicate any symptoms associated with coronavirus-19. Ebola Screen: No symptoms or risks identified at this time. Risk Assessment: Do you want to hurt yourself or someone else? Patient reports no desire to harm self or others. Onset of symptoms was March 06, 2020. 14:51 Method Of Arrival: Ambulatory sv 14:51 Acuity: NUPUR 3 sv 14:55 Initial Sepsis Screen: Does the patient meet any 2 criteria? No. Patient's initial sv sepsis screen is negative. Does the patient have a suspected source of infection? No. Patient's initial sepsis screen is negative. Historical: - Allergies: 14:54 No Known Allergies; sv - PMHx: 14:54 High Cholesterol; Hypertension; Fibromyalgia; Arthritis; Diabetes - NIDDM; sv - PSHx: 14:54 Cholecystectomy; Hysterectomy; Breast biopsy; Rotator cuffs bilateral; ganglion cyst; sv - Immunization history:: Flu vaccine is up to date. - Social history:: Smoking status: Patient denies any tobacco usage or history of. Screenin:02 Abuse screen: Denies threats or abuse. Denies injuries from another. Nutritional ca1 screening: No deficits noted. Tuberculosis screening: No symptoms or risk factors identified. Fall Risk IV access (20 points). Assessment: 15:02 General: Appears in no apparent distress. comfortable, Behavior is calm, cooperative, ca1 appropriate for age. Pain: Complains of pain in right lower quadrant and left lower quadrant Pain currently is 2 out of 10 on a pain scale. Is intermittent. Neuro: Level of Consciousness is awake, alert, obeys commands, Oriented to person, place, time, situation. Neuro: Reports dizziness. Cardiovascular: Heart tones S1 S2 present Capillary refill < 3 seconds Patient's skin is warm and dry. Rhythm is sinus rhythm. Respiratory: Airway is patent Respiratory effort is even, unlabored, Breath sounds are clear bilaterally. GI: Abdomen is round non-distended, Bowel sounds present X 4 quads. Abd is soft and non tender X 4 quads. Reports nausea. : No signs and/or symptoms were reported regarding the genitourinary system. EENT: No signs and/or symptoms were reported regarding the EENT system. Derm: Skin is intact, is healthy with good turgor, Skin is pink, warm \\T\\ dry. Musculoskeletal: Circulation, motion, and sensation intact. Capillary refill < 3 seconds. 16:00 Reassessment: Patient appears in no apparent distress at this time. Patient and/or ca1 family updated on plan of care and expected duration. Pain level reassessed. Patient is alert, oriented x 3, equal unlabored respirations, skin warm/dry/pink. 17:10 Reassessment: Patient appears in no apparent distress at this time. Patient and/or ca1 family updated on plan of care and expected duration. Pain level reassessed. Patient is alert, oriented x 3, equal unlabored respirations, skin warm/dry/pink. 18:10 Reassessment: Patient appears in no apparent distress at this time. Patient and/or ca1 family updated on plan of care and expected duration. Pain level reassessed. Patient is alert, oriented x 3, equal unlabored respirations, skin warm/dry/pink. Patient states feeling better. Patient states symptoms have improved. 18:56 Reassessment: Patient appears in no apparent distress at this time. Patient is alert, ca1 oriented x 3, equal unlabored respirations, skin warm/dry/pink. Patient states feeling better. Patient states symptoms have improved. Vital Signs: 14:55 BP 181 / 71; Pulse 76; Resp 16; Temp 98.1; Pulse Ox 100% ; Weight 95.25 kg; Height 5 sv ft. 2 in. (157.48 cm); 16:01 BP 136 / 78; Pulse 56; Resp 18 S; Pulse Ox 99% on R/A; ca1 17:00 BP 142 / 86; Pulse 56; Resp 18 S; Pulse Ox 98% on R/A; ca1 18:09 BP 138 / 73; Pulse 56; Resp 17 S; Pulse Ox 100% on R/A; ca1 18:41 BP 102 / 54 Supine; Pulse 58; Resp 18 S; Pulse Ox 99% on R/A; ca1 18:43 BP 133 / 72 Sitting; Pulse 59; Resp 16 S; Pulse Ox 100% on R/A; ca1 18:45 BP 135 / 75 Standing; Pulse 63; Resp 17 S; Pulse Ox 100% on R/A; ca1 14:55 Body Mass Index 38.41 (95.25 kg, 157.48 cm) sv NIH Stroke Scale Scores: 15:50 NIHSS Score: 0 cp ED Course: 14:42 Patient arrived in ED. ds1 14:51 Arm band placed on. sv 14:53 Triage completed. sv 15:02 Patient has correct armband on for positive identification. Placed in gown. Bed in low ca1 position. Call light in reach. Side rails up X2. alarm security or surveillance monitor on. Pulse ox on. NIBP on. Warm blanket given. 15:04 Lory Coronel, HAYES is Primary Nurse. ca1 15:22 Tian De Leon PA is PHCP. cp 15:55 No provider procedures requiring assistance completed. Initial lab(s) drawn, by tx, ca1 sent to lab. Inserted saline lock: 20 gauge in left antecubital area, using aseptic technique. Blood collected. 16:11 Naeem Alexander MD is Attending Physician. cp 16:15 CT Head Brain wo Cont In Process Unspecified. EDMS 16:33 XRAY Chest (1 view) In Process Unspecified. EDMS 18:56 IV discontinued, intact, bleeding controlled, No redness/swelling at site. Pressure ca1 dressing applied. Administered Medications: 15:57 Drug: Zofran (Ondansetron) 4 mg Route: IVP; Site: left antecubital; ca1 18:00 Follow up: Response: No adverse reaction; Nausea is decreased ca1 16:10 Drug: Meclizine 25 mg Route: PO; ca1 18:00 Follow up: Response: No adverse reaction; Marked relief of symptoms ca1 17:15 Drug: NS 0.9% 500 ml Route: IV; Rate: bolus; Site: left antecubital; ca1 18:00 Follow up: Response: No adverse reaction; IV Status: Completed infusion; IV Intake: ca1 500ml 17:28 Drug: Potassium Effervescent Tablet 50 mEq Route: PO; ca1 18:42 Follow up: Response: No adverse reaction ca1 17:29 Drug: Magnesium Sulfate 1 grams Route: IVPB; Infused Over: 1 hrs; Site: right wrist; ca1 18:42 Follow up: Response: No adverse reaction; IV Status: Completed infusion; IV Intake: ca1 100ml Intake: 18:00 IV: 500ml; Total: 500ml. ca1 18:42 IV: 100ml; Total: 600ml. ca1 Outcome: 18:45 Discharge ordered by MD. cp 18:56 Discharged to home ambulatory, with family. ca1 18:56 Condition: stable 18:56 Discharge instructions given to patient, Instructed on discharge instructions, follow up and referral plans. medication usage, Demonstrated understanding of instructions, follow-up care, medications, Prescriptions given X 2. 18:56 Patient left the ED. ca1 NIH Stroke Scale - NIH Stroke Score Date: 03/06/2020 Time: 15:50 Total Score = 0 1a. Level of Consciousness (LOC) - 0(Alert) 1b. Level of Consciousness (LOC) (Year \\T\\ Age) - 0(Both) 1c. LOC Commands (Open \\T\\ Closes Eyes/Corporate Training Manager) - 0(Both) 2. Best Gaze (Lateral Gaze Paresis) - 0(Normal) 3. Visual Field Loss - 0(No visual loss) 4. Facial Palsy - 0(Normal) 5a. Left Arm: Motor (10-second hold) - 0(No drift) 5b. Right Arm: Motor (10-second hold) - 0(No drift) 6a. Left Leg: Motor (5-second hold - always test supine) - 0(No drift) 6b. Right Leg: Motor (5-second hold - always test supine) - 0(No drift) 7. Limb Ataxia (finger/nose \\T\\ heel/martines - test with eyes open) - 0(Absent) 8. Sensory Loss (pinprick arms/legs/face) - 0(Normal) 9. Best Language: Aphasia (description/naming/reading) - 0(No aphasia) 10. Dysarthria (speech clarity - read or repeat words) - 0(Normal) 11. Extinction and Inattention (visual/tactile/auditory/spatial/personal) - 0(No abnormality) Initials: cp Signatures: Dispatcher [employer] Luz Bell RN RN sv Hannah Velez ds1 Tian De Leon, KRISSY PA cp Lory Coronel, RN RN ca1
[2020-03-06 19:19] VITALS: TEMP 98.1
[2020-03-06 19:32] VITALS: O2SAT 100
[2020-03-06 19:34] VITALS: BP 135/75
--- NOTE | 2020-03-07 10:44 | EKG ---
Test Date: 2020-03-06 Test Time: 16:10:25 Balance Wheel Hand Filer: BRIAN MEASUREMENT RESULTS: Intervals: Rate: 61 VA: 164 QRSD: 74 QT: 408 QTc: 410 [place]: P: 68 VA: 164 QRS: 8 T: 25 INTERPRETIVE STATEMENTS: Normal sinus rhythm Normal ECG Compared to ECG 06/29/2018 14:35:34 No significant changes Electronically Signed On 03-07-20 10:43:33 CDT by Sandip Nevarez
== END 2020-03-06 18:56 | disposition home or self-care (01) ==
LOC: ER 14:38
DX: R42 Dizziness and giddiness (principal); I10 Essential (primary) hypertension
CPT/HCPCS: 96365; 93005; 85025; 80048; 36415; 83735; 85610; 80076; 84484; 70450; 71045; 96375; 99284; J3475; J7030; J2405; 81003; 81015

== ENCOUNTER → 2023-08-16 | Day surgery (SDC) | payer OTHER ==
--- NOTE | 2023-08-16 12:11 | RAD REPORT ---
EXAM DESCRIPTION: US - Guided FNA Non Breast - 08/16/2023 10:31 am CLINICAL HISTORY: Thyroid nodule ICD E 04.1 thyroid nodule COMPARISON: July 2023 ultrasound TECHNIQUE: Risks, benefits and alternatives of procedure explained to the patient and informed conse nt obtained. Skin, subcutaneous and deeper tissues anesthetized with lidocaine. Under sonographic guidance, five 25 gauge needle passes were obtained into the dominant nodule within the right lobe of the thyroid gland which contains calcification. Specimens given to pathology. Patient experienced no immediate complication IMPRESSION: Fine-needle aspiration of a dominant nodule within right lobe of thyroid gland
== END ==
LOC: FNA 10:00
PROVIDERS: ATTEND Family Medicine
PROC: 0GBH3ZX Excision of Right Thyroid Gland Lobe, Percutaneous Approach, Diagnostic (ICD-10-PCS; principal; 2023-08-16)
DX: E04.1 Nontoxic single thyroid nodule (principal); R93.89 Abnormal findings on diagnostic imaging of other specified body structures
CPT/HCPCS: 88162; 88305

== ENCOUNTER 2024-04-23 08:41 | Day surgery (SDC) | payer OTHER ==
[2024-04-20 16:23] LABS: Anion Gap 6.5 mEq/L (5.0-15.0); Potassium 3.5 mEq/L (3.5-5.1)
[2024-04-20 16:24] LABS: Absolute Basophils 0.1 K/uL (0-0.5); Absolute Eosinophils 0.2 K/uL (0-0.5); Absolute Lymphocytes (CBC) 2.5 K/uL (0.7-4.9); Absolute Monocytes 0.6 K/uL (0.1-1.3); Absolute Neutrophil 3.3 K/uL (1.8-8.0); Basophils % 1.1 % (0-1.3); Eosinophils % 2.8 % (0-4.4); Hematocrit 36.7 % (36.0-45.0); Hemoglobin 11.6 g/dL (12.0-15.0); Lymphocytes % 38.2 % (15.3-44.8); MCH 27.3 pg (27.0-35.0); MCHC 31.6 g/dL (32.0-36.0); MCV 86.3 fL (80-100); MPV 8.2 fL (7.6-11.3); Monocytes % 8.5 % (3.3-12.3); Neutrophils % 49.4 % (41.7-73.7); Platelets 303 thou/uL (152-406); RBC Red Blood Cell Count 4.26 M/uL (3.86-4.86); Red Cell Distribution Width 15.6 % (12.1-15.2)
[2024-04-23] MEDS: CEFAZOLIN SODIUM 1 GM/VIAL ONE (09:05)
[2024-04-23] MEDS: NA CHLORIDE 0.9% 1,000 ML ONE (09:05)
[2024-04-23] MEDS ORDERED: FENTANYL CITR 100 MCG/2 ML ONE (09:11)
[2024-04-23] MEDS ORDERED: propofoL 200 MG/20 ML VIAL IV ONE (09:11)
[2024-04-23] MEDS ORDERED: MIDAZOLAM HCL 2 MG/2 ML INJ ONE (09:11)
[2024-04-23] MEDS ORDERED: LIDOCAINE 1% MPF 5 ML VIAL ONE (09:11)
[2024-04-23] MEDS ORDERED: EPHEDRINE SULF 50 MG/ML VIAL ONE (09:57)
[2024-04-23] MEDS: Mastisol Adhesive Liq ONE (10:18)
--- NOTE | 2024-04-23 10:20 | P.BOP ---
Preoperative diagnosis: tender left upper back subQ mass Postoperative diagnosis: same Primary procedure: Excisional biopsy with layer closure deep tender left upper back subQ mass Secondary procedure: [id number] Estimated blood loss: <10cc Specimen: mass Findings: deep mass Anesthesia: General Complications: None Transferred to: Recovery Room Condition: Good
[2024-04-23] MEDS: HYDROCODONE/APAP 5/325 MG TAB ONE (12:12)
[2024-04-23 15:46] VITALS: BP 142/73; TEMP 97; O2SAT 94
--- NOTE | 2024-04-23 21:19 | OP ---
Date of Procedure: 04/23/2024 Surgeon: Tiburcio Webber MD Preoperative Diagnosis: Tender left upper back subcutaneous mass. Postoperative Diagnosis: Tender left upper back subcutaneous mass. Procedure: Excisional biopsy with layered closure of deep tender left lower back subcutaneous mass. Anesthesia: General plus local. Complications: None. Indication: This is a case of a 69-year-old patient who comes to us with above diagnosis fully expla ined the benefits, alternatives, and risks of a tender left upper back subcutaneous mass, which inclu de, but not limited to infection, bleeding, damage to adjacent structures, anesthesia complication, n onhealing wound, [place], and . She also understands this may not relieve any symptoms. She might n eed more than one surgical intervention. She understood, signed a consent. Description Of Procedure: The area of concern was marked by me and the patient in the holding room. Patient was brought to the operating room, placed in supine position. Anesthesia was without compli cation. Left upper back was prepped and draped in a sterile fashion. A time-out was called. The pa tient was placed in lateral decubitus position with proper protection. After time-out, we proceeded then to make an incision on the left upper back area after prepping the area in the usual sterile fas hion. Once we made an incision, we went deep into the subcutaneous tissue next to the muscle fascia we noticed this fatty tumor present. With the help of blunt dissection, we were able to visualize an d delineate the asymmetrical shape, but we were able to bring in 1 unit. The area was irrigated. He mostasis obtained. All the masses palpated. Due to the how deep this is, but this have to be closed in layers. Does not penetrate the muscle, although it is attached to the muscle, so we approximated that area with 3-0 chromic and then mid layers with 3-0 chromic more superficial layer with 3-0 lunchroom aide joelle and skin with a 4-0 PDS. This was after irrigation and suction, hemostasis and local anesthetic. Steri-Strips placed over the area. Patient tolerated the procedure well. Patient was sent to [facility] in stable condition. ROXANA/DIEGO Voice ID: [id number] Report ID: [id number]
--- NOTE | 2024-04-23 21:19 | DS ---
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 Procedure: Excisional biopsy with layered closure of deep tender left upper back subcutaneous mass. Disposition: Home. Activity: As tolerated. No heavy lifting. Followup: In my office in 1 week. Call for appointment [phone]. Keep area dry for 48 hours, then may shower. Keep Steri-Strips intact. ROXANA/DIEGO Voice ID: [id number] Report ID: [id number]
== END 2024-04-23 12:50 | disposition home or self-care (01) ==
LOC: OR 08:41
PROVIDERS: ATTEND Surgery
PROC: 0JB70ZZ Excision of Back Subcutaneous Tissue and Fascia, Open Approach (ICD-10-PCS; principal; 2024-04-23 10:00)
DX: D17.1 Benign lipomatous neoplasm of skin and subcutaneous tissue of trunk (principal)
CPT/HCPCS: 85025; 80048; 36415; 82947 ×2; 88304; 11406; J2704; J2003; J2250; J3010; J7030; J0690